=== PATIENT | female | born 1965 | race Caucasian/White ===

== ENCOUNTER 2017-08-29 11:32 | Emergency (ER) | payer BC, OTHER ==
[2017-08-29 12:07] VITALS: BP 113/73
--- NOTE | 2017-08-29 12:31 | UC ---
Laceration HPI - HPI Summary HPI Summary: 51 y/o female presents to the urgent care c/o laceration above his left eyebrow last night at 11pm. Pt reports she tripped over the sidewalk and fell. She did not LOC. Bleeding stopped with pressure. She took and Advil PO. Today she took a shower and bleeding continue. It stopped with pressure. Pain is 1/10. Pt doesn 't recall last Tetanus vaccine. Pt denies fever, Visual disturbance, MCKEON, dizziness, SOB, chest pain, N/V/D - History Of Current Complaint Chief Complaint: UCLaceration Stated Complaint: FOREHEAD LACERATION Time Seen by Provider: 08/29/17 12:30 Hx Obtained From: Patient Hx Last Menstrual Period: n/a Laceration Location: Face - Above left eyebrow Mechanism Of Injury: Sharp Trauma Onset/Duration: Sudden Onset, Lasting Hours - 12 hours, Still Present Severity: Moderate Pain Intensity: 1 Pain Scale Used: 0-10 Numeric Aggravating Factors: Other: - touch - Allergies/Home Medications Allergies/Adverse Reactions: Allergies Allergy/AdvReac Type Severity Reaction Status Date / Time Penicillins Allergy Severe upset Verified 08/29/17 12:07 stomach, diarrhea PMH/Surg Hx/FS Hx/Imm Hx Previously Healthy: Yes Cardiovascular History: Hypertension - Surgical History Surgical History: Yes Surgery Procedure, Year, and Place: ankle surgery - Family History Known Family History: Positive: Hypertension - Social History Occupation: Employed Full-time Lives: With Family Alcohol Use: Occasionally Substance Use Type: None Smoking Status (MU): Heavy Every Day Tobacco Smoker Type: Cigarettes Amount Used/How Often: 1/2ppd Household Exposure Type: Cigarettes - Immunization History Most Recent Influenza Vaccination: no 2017 Most Recent Tetanus Shot: can't recall Review of Systems Constitutional: Negative Skin: Other - laceration above left eyebrow s/p fall Eyes: Negative ENT: Negative Respiratory: Negative Cardiovascular: Negative Gastrointestinal: Negative Genitourinary: Negative Motor: Negative Neurovascular: Negative Musculoskeletal: Negative Neurological: Negative Psychological: Negative Is Patient Immunocompromised?: No All Other Systems Reviewed And Are Negative: Yes Physical Exam Triage Information Reviewed: Yes Appearance: Well-Appearing, No Pain Distress, Well-Nourished, Thin Vital Signs: Initial Vital Signs Temp 98 F 08/29/17 12:03 Pulse 85 08/29/17 12:03 Resp 16 08/29/17 12:03 BP 113/73 08/29/17 12:03 Pulse Ox 100 08/29/17 12:03 Vital Signs Reviewed: Yes Eye Exam: Normal Eyes: Positive: Conjunctiva Clear - PERRLA, EOMI, fundi grossly normal ENT Exam: Normal ENT: Positive: Normal ENT inspection, Hearing grossly normal, Pharynx normal, TMs normal - B?l external ear canal clear, TM's WNL Neck exam: Normal Neck: Positive: Supple, Nontender, No Lymphadenopathy Respiratory Exam: Normal Respiratory: Positive: Chest non-tender, Lungs clear, Normal breath sounds, No respiratory distress Cardiovascular Exam: Normal Cardiovascular: Positive: RRR, No Murmur, Pulses Normal Abdominal Exam: Normal Abdomen Description: Positive: Nontender, No Organomegaly, Soft. Negative: CVA Tenderness (R), CVA Tenderness (L) Bowel Sounds: Positive: Present Musculoskeletal Exam: Normal Musculoskeletal: Positive: Strength Intact, ROM Intact, No Edema Neurological Exam: Normal Psychological Exam: Normal Skin: Positive: significant lesion(s) - superficial linear laceration above lateral side of left eyebrow about 2cm in size . bleeding stopped. mild tenderness to papation over the wound, no edema noted. Head is normocephalic and atraumatic, no step off deformity observed. Laceration Repair - Laceration Repair 1 Description: Linear Laceration Size After Repair: Length (cm) - 2cm Modified For Repair: No Type Injection: Local Anesthesia Used: 2.0% Lido - 2ml Cleansing Completed Via Routine Prep: Yes Irrigation With Pressure Irrigation Device: Yes Closure Material: Sutures - 8 sutures Closure Method: Single Layer Suture Of: Skin Suture Type: Nylon - 6.0 Laceration Course/Dx - Course/Dx Course Of Treatment: 51 y/o female presents to the urgent care c/o laceration above his left eyebrow last night at 11pm. Pt reports she tripped over the sidewalk and fell. She did not LOC. Bleeding stopped with pressure. She took and Advil PO. Today she took a shower and bleeding continue. It stopped with pressure. Pain is 1/10. Pt doesn't recall last Tetanus vaccine. Pt denies fever , Visual disturbance, MCKEON, dizziness, SOB, chest pain, N/V/D. Hx obtained. Pt given Tdap Im inj by the Nurse. Pt tolerated well IM inj. LACERATION PROCEDURE NOTE: . Copious irrigation was done with saline and the wound explored. There was no FB or deep structure injury noted. Timeout performed with the nurse. The procedure was explained and consent obtained. Lidocaine 1% ordered to anesthetize the area. Good anesthesia obtained with 2mL of 1% Lidocaine, Iodine applied around wound 3X. Sterile drape and prep were done There were 8 sutures placed with 6.0 Nylon . The length of the wound after closure was 2.0 cm. No debridement done. Wound was covered with bacitracin and sterile nonadherent dressing. The Pt tolerated the procedure well without adverse effects. Pt neurovascular intact. Pt advised if signs of infection develop like fever, redness, pain to return to the urgent care or f/u with PCP for further treatment. Otherwise f/u suture removal in 5 days. PT understood and agreed. Pt left the clinic ambulating. - Differential Dx - Laceration/Wound Differental Diagnoses: Abrasion, Cellulitis, Laceration, Puncture Wound Provider Diagnoses: 1- Left eyebrow laceration repair Discharge - Discharge Plan Condition: Stable Disposition: HOME Prescriptions: Bacitracin OINTMENT* 1 applic TOPICAL TID #1 tube Patient Education Materials: Care For Your Stitches (ED), Laceration (ED) Referrals: Didier Ferrer, [Primary Care Provider] - 5 Days Additional Instructions: 1-Please apply topical antibiotic over the wound. Keep wound clean and dry 3- F/u suture removal in 4-5 days days w/ your PCP or here at the urgent care. 4-Take Ibuprofen or Tylenol PO q6-8hrs prn for pain or swelling. 5- If you develop fever or redness around your finger despite the antibiotic please go to the ER immediately or return to the Urgent care.
[2017-08-29] MEDS ORDERED: Lidocaine 2% PF * 5 ML VIAL INJ ONE (12:39)
[2017-08-29] MEDS ORDERED: Tetan/Diph/Pertus SYR(Tdap)* 0.5 ML SYR(BOOSTRIX) use SYR IM ONE (12:41)
== END 2017-08-29 13:32 | disposition home or self-care (01) ==
LOC: UCCORT 11:32
DX: S01.81XA Laceration without foreign body of other part of head, initial encounter (principal); W01.0XXA Fall on same level from slipping, tripping and stumbling without subsequent striking against object, initial encounter; Y93.9 Activity, unspecified; Y92.9 Unspecified place or not applicable; Y99.9 Unspecified external cause status; Z88.0 Allergy status to penicillin
CPT/HCPCS: 90471; 90715; 99212; G0463

== ENCOUNTER 2018-09-11 11:27 | Emergency (ER) | payer BC ==
[2018-09-11 12:18] VITALS: BP 155/70
--- NOTE | 2018-09-11 12:28 | UC ---
General HPI - HPI Summary HPI Summary: Patient states that she got her right thumb caught in a pullout couch last evening causing a cut. This occurred around 9:30 PM. She presents today because the wound won't stop bleeding. She notes the cut itself is a bit sore but she has no pain in the joints were the bone. She denies any limited range of motion she denies any other injuries offers no other complaints. Her tetanus is up-to-date. Patient states that she had tetanus shot within the past 1-2 years. She does take an aspirin daily. - History of Current Complaint Chief Complaint: UCLaceration Stated Complaint: RIGHT THUMB INJURY Time Seen by Provider: 09/11/18 12:21 Hx Obtained From: Patient Hx Last Menstrual Period: n/a Onset/Duration: Sudden Onset Timing: Constant Pain Intensity: 5 Aggravating: nothing - Allergy/Home Medications Allergies/Adverse Reactions: Allergies Allergy/AdvReac Type Severity Reaction Status Date / Time Penicillins Allergy Stomach Verified 09/11/18 12:15 Cramps Home Medications: Home Medications Metoprolol Succinate XL TAB* [Toprol XL TAB*] 25 mg PO DAILY 09/11/18 [History Confirmed 09/11/18] PMH/Surg Hx/FS Hx/Imm Hx Cardiovascular History: Hypertension - Surgical History Surgical History: Yes Surgery Procedure, Year, and Place: ankle surgery - Family History Known Family History: Positive: None - no history of eye problems, Hypertension - Social History Occupation: Employed Full-time Alcohol Use: Occasionally Substance Use Type: None Smoking Status (MU): Heavy Every Day Tobacco Smoker Type: Cigarettes Amount Used/How Often: 1/2ppd Household Exposure Type: Cigarettes - Immunization History Most Recent Influenza Vaccination: no 2016 Most Recent Tetanus Shot: 08/29/17 Hx Tetanus, Diphtheria Vaccination: Yes Vaccination Up to Date: Yes Review of Systems Constitutional: Negative Skin: Other - cut r thumb Eyes: Negative ENT: Negative Respiratory: Negative Cardiovascular: Negative Gastrointestinal: Negative Genitourinary: Negative Motor: Negative Neurovascular: Negative Musculoskeletal: Negative Neurological: Negative Psychological: Negative Is Patient Immunocompromised?: No All Other Systems Reviewed And Are Negative: Yes Physical Exam Triage Information Reviewed: Yes Appearance: Well-Appearing Vital Signs: Initial Vital Signs Temp 98.6 F 09/11/18 12:13 Pulse 85 09/11/18 12:13 Resp 18 09/11/18 12:13 BP 155/70 09/11/18 12:13 Pulse Ox 100 09/11/18 12:13 Vital Signs Reviewed: Yes Eyes: Positive: Conjunctiva Clear ENT: Positive: Normal ENT inspection Neck: Positive: Supple, Nontender Respiratory: Positive: Lungs clear, Normal breath sounds Cardiovascular: Positive: RRR, No Murmur Abdomen Description: Positive: Nontender, No Organomegaly, Soft Bowel Sounds: Positive: Present Musculoskeletal: Positive: Other: - R hand: 2cm flap laceration R thumb with venous oozing from the flap. Flap is mildly pale and fatty tissue seen underneath. No FB, bony deformity or tenderness. Thumb has full s/v/m function up to point of injury. Rest of hand is atraumatic. Neurological: Positive: Alert Psychological: Positive: Age Appropriate Behavior Skin Exam: Normal Course/Dx - Course Course Of Treatment: pt advised of risk for increased infection with repair due to age of wound; however, I think benefit of flap repair out weighs risk of infection thus pt agrees to repair. pt also advised flap may be without circulation and scab or slough off but closing the site is still to her benefit while at attempts to heal. Procedure: Thumb prepped with Betadine. Digital block with 2 mL was of 1% lidocaine. Wound explored and no foreign body, muscle tendon or ligament damage identified. Wound irrigated with 400 him Dolly' s of sterile sodium chloride. Site reprepped with Betadine and draped in sterile fashion. Flap returned as anatomic position and sutured in place with 4 5-0 monofilament simple stitches. Again flap is mildly pale. Post procedure , bleeding stopped. Site covered with patient trace and sterile gauze and held in place with Coban. Thumb had full vascular motor function post procedure. Patient tolerated well. Given the nature of the wound and that the flap may devitalized and ultimately slough off and going to give her referral to hand specialty for follow-up and treat her with Keflex an effort to prevent infection. hx HTN plus BP visit related - Differential Dx - Multi-Symptom Provider Diagnoses: 2cm flap laceration R thumb Discharge - Sign-Out/Discharge Documenting (check all that apply): Patient Departure All imaging exams completed and their final reports reviewed: No Studies - Discharge Plan Condition: Stable Disposition: HOME Prescriptions: Cephalexin CAP* [Keflex CAP*] 500 mg PO TID 5 Days #15 cap Patient Education Materials: Care For Your Stitches (ED) Forms: *Work Release Referrals: Chloe Mcarthur PA [Primary Care Provider] - If Needed Carole Huitron MD [Medical Doctor] - 7 Days - Billing Disposition and Condition Condition: STABLE Disposition: Home
[2018-09-11] MEDS ORDERED: Lidocaine 1%* 5 ML VIAL INJ ONE (12:30)
== END 2018-09-11 13:22 | disposition home or self-care (01) ==
LOC: UCCORT 11:27
DX: W23.0XXA Caught, crushed, jammed, or pinched between moving objects, initial encounter (principal); Y93.89 Activity, other specified; Y92.9 Unspecified place or not applicable; S61.011A Laceration without foreign body of right thumb without damage to nail, initial encounter; Z88.0 Allergy status to penicillin; F17.210 Nicotine dependence, cigarettes, uncomplicated
CPT/HCPCS: 12001; 99212; G0463